=== PATIENT | male | born 1975 | race Caucasian/White ===

== ENCOUNTER 2016-08-28 09:05 | Day surgery (SDC) | payer BC ==
--- NOTE | ~2016-08-28 | OP ---
Record Of Operation [facility] [address] [place]. [address] NAME: SPEEDY CAMARILLO : 73 STATUS : [facility]#: [id number] AGE: 41 ADM/REG DATE : 08/28/16 MR#: [id number] REPORT SERV DATE: 08/28/16 DICTATED BY: CM ERVIN DATE: 08/28/16 REPORT STATUS : Draft TRANSCRIBED BY: ABILIO DATE: 08/28/16 DATE OF PROCEDURE: 08/28/2016 PREOPERATIVE DIAGNOSIS: Left ureteral stone. POSTOPERATIVE DIAGNOSIS: Left ureteral stone. PROCEDURE: Left ESWL. ANESTHESIA: General. SPECIMENS: None. ESTIMATED BLOOD LOSS: None. DISPOSITION: To PACU in good condition. HISTORY: This is a 41-year-old gentleman who presented to me with a 2 to 3 mm left distal ureteral stone on CT scan. He presents today for the above-stated procedure. PROCEDURE IN DETAIL: After consent was obtained, the patient was taken to the lithotripsy table and placed on the Dornier machine in a supine position. His stone was located on 2 planes from the anterior position. General anesthetic was induced by Department of Anesthesia. He then received 3000 shocks at a maximum energy level of 5 and rate of 90 to the stone. He tolerated the procedure. The patient was then extubated and taken to the recovery room in good condition. PLAN: The plan will be to see him back in two to three weeks with a KUB. All of his prescriptions were given to him at his office visit. CEASAR/ABILIO Cm Ervin M.D. / [id number] CC: Tito Ko M.D.
[~2016-08-28 09:05] MED LIST: CELEXA20 PO; CIP5 PO; FLOMAX4 PO; PERCOCET 10/3251 TAB PO; REQUIP1 PO; ZOFRAN8 PO
[2016-08-28 10:01] LABS: ASCORBIC ACID (UR NOT ORDER) NEG (NEG); BILIRUBIN, URINE NEGATIVE (NEG); KETONE, URINE 20 MG/DL (NEG); LEUKOCYTE ESTERASE(NOT OR NEG (NEG); WBC (NOT ORDERED) (RFLEX) 2 (0-5)
[2016-08-28 10:13] LABS: BASOPHILS 0.3 %; BASOPHILS ABSOLUTE 0.03 10/3/uL (0.0-0.16); EOSINOPHILS 0.8 %; EOSINOPHILS ABSOLUTE 0.08 10/3/uL (0.0-0.53); HEMATOCRIT 41.7 % (40.0-51.0); HEMOGLOBIN 14.4 g/dL (13.6-17.8); IMMATURE GRANULOCYTES 0.1 %; IMMATURE GRANULOCYTES ABSOLUTE 0.01 10/3/uL (0.0-0.11); LYMPHOCYTES ABSOLUTE 1.46 10/3/uL (0.67-4.30); MEAN CORPUS HGB CONC 34.5 g/dL (32.0-36.0); MEAN CORPUSCULAR HEMOGLOB 29.9 pg (26.0-34.0); MEAN CORPUSCULAR VOLUME 86.7 fL (80-100); MEAN PLATELET VOLUME 9.7 fL (9.2-13.0); MONOCYTES 13.7 %; MONOCYTES ABSOLUTE 1.34 10/3/uL (0.21-1.20); NEUTROPHILS 70.1 %; NEUTROPHILS ABSOLUTE 6.84 10/3/uL (2.02-8.40); PLATELET COUNT 201 10/3/uL (150-400); RBC DISTRIBUTION WIDTH 12.6 % (12.0-16.0); RED CELL COUNT 4.81 10/6/uL (4.7-6.1)
[2016-08-28 10:18] LABS: MANUAL DIFF NO %; PFA (COL/EPI) 95 SEC (72-180); WHITE BLOOD CELLS 9.8 10/3/uL (4.5-10.5)
[2016-08-28 10:25] LABS: BUN (BLOOD UREA NITROGEN) 17 MG/DL (6-23); CALCIUM, SERUM 9.3 MG/DL (8.5-10.4); CHLORIDE, SERUM 99 MMOL/L (96-112); CO2 (CARBON DIOXIDE) 30 MMOL/L (24-34); CREATININE 1.77 MG/DL (0.70-1.30); GFR AFRICAN AMERICAN 54 ML/MIN (>=60); GFR NON AFRICAN AMERICAN 46 ML/MIN (>=60); GLUCOSE, SERUM 119 MG/DL (60-99); POTASSIUM, SERUM 4.2 MMOL/L (3.5-5.3); SODIUM, SERUM 135 MMOL/L (135-148)
== END 2016-08-28 17:24 | disposition home or self-care (01) ==
LOC: SDC 09:05
PROVIDERS: Urology
PROC: 0TF7XZZ Fragmentation in Left Ureter, External Approach (ICD-10-PCS; principal; 2016-08-28 11:00)
DX: N20.1 Calculus of ureter (principal); K21.9 Gastro-esophageal reflux disease without esophagitis; G47.33 Obstructive sleep apnea (adult) (pediatric); F41.9 Anxiety disorder, unspecified; F32.9 Major depressive disorder, single episode, unspecified; Z99.81 Dependence on supplemental oxygen; Z87.442 Personal history of urinary calculi
CPT/HCPCS: 50590; 74000; 80048; 81001; 85025; 85576; J0330; J2250; J2270; J2405; J3010